=== PATIENT | female | born 1995 | race Asian ===

== ENCOUNTER 2018-11-27 17:05 | Emergency (ER) | payer OTHER ==
--- NOTE | 2018-11-27 19:05 | RADIOLOGY REPORT (SQ) ---
EXAM DESCRIPTION: CHEST 2 VIEWS COMPLETED DATE/TIME: 11/27/2018 6:52 pm REASON FOR STUDY: L lower chest pain COMPARISON: None. EXAM PARAMETERS: NUMBER OF VIEWS: two views TECHNIQUE: Digital Frontal and Lateral radiographic views of the chest acquired. RADIATION DOSE: NA LIMITATIONS: none FINDINGS: LUNGS AND PLEURA: No opacities, masses or pneumothorax. No pleural effusion. MEDIASTINUM AND HILAR STRUCTURES: No masses or contour abnormalities. HEART AND VASCULAR STRUCTURES: Heart normal size. No evidence for failure. BONES: No acute findings. HARDWARE: None in the chest. OTHER: No other significant finding. IMPRESSION: NO ACUTE RADIOGRAPHIC FINDING IN THE CHEST. TECHNICAL DOCUMENTATION: JOB ID: [id number] [id number] 2010 [employer]- All Rights Reserved Reading location - IP/workstation name: [email or web address]
--- NOTE | 2018-11-27 20:18 | ER Document Report ---
ED General - General Chief Complaint: Chest Pain Stated Complaint: CHEST PAIN Time Seen by Provider: 11/27/18 18:23 Notes: 22-year-old female presents emergency department complaining of sharp stabbing left-sided lower chest pain that onset around 3:00 this afternoon. There is no associated trauma, no shortness of breath, no cough, no difficulty breathing, no fevers and no rash. TRAVEL OUTSIDE OF THE [place] IN LAST 30 DAYS: No - Related Data Allergies/Adverse Reactions: No Known Allergies Allergy (Unverified 11/27/18 17:11) Past Medical History - General Information source: Patient - Social History Smoking Status: Never Smoker Chew tobacco use (# tins/day): No Frequency of alcohol use: Rare Drug Abuse: Marijuana Family History: Reviewed & Not Pertinent Patient has suicidal ideation: No Patient has homicidal ideation: No Renal/ Medical History: Denies: Hx Peritoneal Dialysis Review of Systems - Review of Systems Constitutional: No symptoms reported Cardiovascular: See HPI Respiratory: See HPI -: Yes All other systems reviewed and negative Physical Exam - Vital signs Vitals: Temp Pulse Resp BP Pulse Ox 98.1 F 68 20 127/79 H 100 11/27/18 17:13 11/27/18 17:13 11/27/18 17:13 11/27/18 17:13 11/27/18 17:13 Interpretation: Normal - Notes Notes: GENERAL: Alert, interacts well. No acute distress. HEAD: Normocephalic, atraumatic EYES: Pupils equal, round and reactive to light, extraocular movements intact. ENT: Oral mucosa moist, tongue midline. NECK: Full range of motion, supple, trachea midline. LUNGS: Clear to auscultation bilaterally, no wheezes, rales or rhonchi, no re spiratory distress. Nontender to palpation, no rash. HEART: Regular rate and rhythm, no murmurs, gallops, rubs. ABDOMEN: Soft, nontender, nondistended, bowel sounds present in all 4 quadrants. EXTREMITIES: Moves all 4 extremities spontaneously, no edema. No cyanosis. NEUROLOGICAL: Alert and oriented x3, normal speech. PSYCH: Normal mood, normal affect. SKIN: Warm, Dry, normal turgor, no rashes or lesions noted. Course - Re-evaluation Re-evalutation: 11/27/18 20:19 EKG is nonischemic, chest x-ray shows no pneumothorax and no low lying pneumonia. Uncertain why exactly the patient has pleuritic chest pain, there was no preceding viral infection. Discussed with patient taking ibuprofen 800 mg every 8 hours and taking 10 deep breaths full capacity every hour while she is awake. Asked to return for fever, increasing pain, shortness of breath or any new or concerning symptoms. Discharged home. - Vital Signs Vital signs: Temp Pulse Resp BP Pulse Ox 97.6 F 69 16 132/83 H 100 11/27/18 20:34 11/27/18 20:34 11/27/18 20:34 11/27/18 20:34 11/27/18 20:34 - EKG Interpretation by Me Additional EKG results interpreted by me: 11/27/18 19:54 EKG shows sinus rhythm rate is 73, normal inversions, there are retrograde P waves noted in V2 otherwise unremarkable per my interpretation. Discharge - Discharge Clinical Impression: Pleuritic chest pain Condition: Stable Disposition: HOME, SELF-CARE Additional Instructions: You do not have any signs of heart attack or heart problem on your EKG. Your chest x-ray does not reveal any signs of infection and rib or dropped lung. Please take ibuprofen 800 mg every 8 hours and please take 10 deep breaths every hour while you are awake. Please return for fever, increasing pain, shortness of breath or any new or concerning symptoms. Pleurisy Your chest pain has been diagnosed as pleuritis (pleurisy). This is an inflammation of the surface of the lung tissue. It can be caused by a virus or, occasionally, old scar tissue. It is painful but, for the most part, not a serious problem. This pain is usually made worse by deep breathing, coughing, or sudden movements of the upper body or arms. The treatment is relief of symptoms. It includes rest, antiinflammatory medication, and pain medicine. Resolution of the pain is usually rapid once antiinflammatory medication is started. Warning signs of a more serious problem include: a fever, shortness of breath, pain that radiates to your jaw, shoulders or arms, or coughing up bloody sputum. If any of these symptoms occur, call the physician at once. Prescriptions: Prednisone [Deltasone 20 mg Tablet] 40 mg PO DAILY #8 tablet Forms: Return to Work
[2018-11-27 20:36] VITALS: BP 132/83
--- NOTE | 2018-11-28 01:33 | EKG REPORT ---
SEVERITY:- ABNORMAL ECG - SINUS RHYTHM LEFT ATRIAL ABNORMALITY : Confirmed by: Pennie Teran MD 28-Nov-2018 01:31:35
== END 2018-11-27 20:40 | disposition home or self-care (01) ==
LOC: ER 17:05
DX: R07.81 Pleurodynia (principal)
CPT/HCPCS: 71046; 93005; 93010; 99283

== ENCOUNTER 2019-05-21 10:53 | Day surgery (SDC) | payer OTHER ==
[~2019-05-21 10:53] MED LIST: PROPOFOL INJ 200 MG/20 ML VIAL IV ONE
--- NOTE | 2019-05-21 13:51 | Operative Report ---
Operative Report DATE OF SURGERY: 05/21/19 Operative Report: The risks, benefits and alternatives of the procedure including the risk of bleeding, perforation requiring surgery have been explained to the patient in detail and informed consent has been obtained. The patient is taken to the operating room and placed in a left, lateral decubital position. Timeout was called. Propofol medication is administered. Rectal examination is done which did not reveal any masses, tears or fissures. An Olympus videoscope was inserted into the patient's rectum. The scope was then carefully advanced all the way to the cecum. The cecum was identified by the usual anatomical landmarks of the ileocecal valve as well as the appendiceal office. Photodocumentation is obtained. The scope was then sequentially pulled back via the various segments of the colon including the ascending colon, hepatic flexure, transverse colon, splenic flexure, descending colon finding to the rectosigmoid portions of the colon. Retroflexion maneuvers performed. PREOPERATIVE DIAGNOSIS: Abdominal pain rule out Crohn's disease POSTOPERATIVE DIAGNOSIS: Ileitis status post biopsy. Random biopsies taken right side of the colon rule out collagenous colitis OPERATION: Colonoscopy with biopsy SURGEON: NIKITA ARSHAD ANESTHESIA: LMAC TISSUE REMOVED OR ALTERED: As noted above. COMPLICATIONS: None. ESTIMATED BLOOD LOSS: None. INTRAOPERATIVE FINDINGS: As noted above. PROCEDURE: Patient tolerated the procedure well. No immediate post procedure complications are noted. Patient is discharged in good condition. Discharge date 05/21/2019. Discharge diet: Regular. Discharge activity: Regular. 2 to 3-week follow-up to discuss findings. Patient is instructed to call the office or proceed to the emergency room should there be any further problems or questions. Wait on the pathology.
[2019-05-21 14:28] VITALS: BP 105/67
== END 2019-05-21 14:15 | disposition home or self-care (01) ==
LOC: OROUT 10:53
PROVIDERS: ATTEND Internal Medicine Gastroenterology
DX: J45.909 Unspecified asthma, uncomplicated (principal); K52.9 Noninfective gastroenteritis and colitis, unspecified; Z79.51 Long term (current) use of inhaled steroids
CPT/HCPCS: 81025; 88305 ×2; J2704; 45380

== ENCOUNTER 2020-02-16 10:18 | Outpatient (CLI) | payer MEDICAID ==
[2020-02-16] MEDS: RINGERS SOLUTION,LACTATED 1,000 ML IV PRN ×2 (10:58→13:01)
[2020-02-16 11:07] LABS: APPEARANCE,URINE CLEAR; BILIRUBIN,URINE NEGATIVE (NEGATIVE); COLOR,URINE YELLOW; GLUCOSE, URINE NEGATIVE (NEGATIVE); KETONES,URINE NEGATIVE (NEGATIVE); LEUKOCYTE ESTERASE,URINE NEGATIVE (NEGATIVE); NITRITE,URINE NEGATIVE (NEGATIVE); PROTEIN,URINE NEGATIVE (NEGATIVE); URINE SPECIFIC GRAVITY 1.011; UROBILINOGEN,URINE NEGATIVE mg/dL (<2.0)
--- NOTE | 2020-02-16 11:22 | Non Stress Test Report ---
Non Stress Test Datetime Report Generated by CPN: 02/16/2020 11:22 DEMOGRAPHIC EGA NST: 40.1 INDICATION Indication for Study (NST) Other: ctx MONITORING Monitor Explained: Monitor Explained; Patient Verbalized Understanding Time on Monitor: 02/16/2020 11:00 NST INTERVENTIONS NST Interventions: PO Hydration; IV Fluids; Reposition Patient Physician Notified NST: Dr. Colorado BABY A: [id number] BABY A Movement : Present Contraction Frequency : 4.5-5 FHR Baseline : 145 Accelerations : 15X15 Decelerations : None Variability : Moderate 6-25bpm NST Review: Meets Criteria for Reactive NST NST Review and Verified By : COLT Duval Results: Reactive NST REPORT Report Trigger: Send Report
[2020-02-16 11:24] LABS: URINE AMPHETAMINES SCREEN NEGATIVE; URINE BARBITURATES SCREEN NEGATIVE; URINE BENZODIAZEPINES SCREEN NEGATIVE; URINE COCAINE SCREEN NEGATIVE; URINE MARIJUANA (THC) SCREEN NEGATIVE; URINE METHADONE SCREEN NEGATIVE; URINE PHENCYCLIDINE SCREEN NEGATIVE
[2020-02-16] MEDS ORDERED: RINGERS SOLUTION,LACTATED 2,000 ML IV PRN (12:54)
--- NOTE | 2020-02-16 13:32 | RADIOLOGY REPORT (SQ) ---
EXAM DESCRIPTION: U/S PROFILE W/O STRESS IMAGES COMPLETED DATE/TIME: 02/16/2020 1:23 pm REASON FOR STUDY: 40.1 wellbeing COMPARISON: None. TECHNIQUE: Limited lynn-scale realtime and static images of the fetus to measure specified parameter s. LIMITATIONS: None. FINDINGS: HEART RATE: 118 beats per minute. BREATHING MOVEMENT: 2 points. MOVEMENT: 2 points. POSTURE AND TONE: 2 points. QUALITATIVE JONES: 2 points. OTHER: No other significant finding. IMPRESSION: BIOPHYSICAL PROFILE: 05/02. Trimester of : Third - 28 weeks to delivery COMMENT: BREATHING MOVEMENTS: 2 POINTS: PRESENT 0 POINTS: ABSENT MOTION: 2 POINTS: PRESENT 0 POINTS: ABSENT TONE: 2 POINTS: PRESENT 0 POINTS: ABSENT AMNIOTIC FLUID VOLUME: 2 POINTS: LARGEST POCKET GREATER THAN 2 CM DEPTH. 0 POINTS: NO POCKET OF 2 CM. TECHNICAL DOCUMENTATION: JOB ID: [id number] 2010 [employer]- All Rights Reserved Reading location - IP/workstation name: [email or web address]
== END 2020-02-16 14:11 | disposition home or self-care (01) ==
LOC: LC 10:18
PROVIDERS: ATTEND Obstetrics & Gynecology Gynecology
DX: Z34.93 Encounter for supervision of normal pregnancy, unspecified, third trimester (principal)
CPT/HCPCS: 59025; 76819; 80307; 81005

== ENCOUNTER 2020-02-17 00:25 | Outpatient (CLI) | payer MEDICAID ==
[2020-02-17 01:11] LABS: APPEARANCE,URINE CLEAR; BILIRUBIN,URINE NEGATIVE (NEGATIVE); COLOR,URINE YELLOW; GLUCOSE, URINE NEGATIVE (NEGATIVE); KETONES,URINE NEGATIVE (NEGATIVE); LEUKOCYTE ESTERASE,URINE NEGATIVE (NEGATIVE); NITRITE,URINE NEGATIVE (NEGATIVE); PROTEIN,URINE NEGATIVE (NEGATIVE); URINE SPECIFIC GRAVITY 1.015; UROBILINOGEN,URINE NEGATIVE mg/dL (<2.0)
[2020-02-17] MEDS ORDERED: HYDROXYZINE PAMOATE 50 MG CAPSULE ONE (01:35)
[2020-02-17 01:36] LABS: URINE AMPHETAMINES SCREEN NEGATIVE; URINE BARBITURATES SCREEN NEGATIVE; URINE BENZODIAZEPINES SCREEN NEGATIVE; URINE COCAINE SCREEN NEGATIVE; URINE MARIJUANA (THC) SCREEN NEGATIVE; URINE METHADONE SCREEN NEGATIVE; URINE PHENCYCLIDINE SCREEN NEGATIVE
[2020-02-17] MEDS ORDERED: HYDROXYZINE PAMOATE 50 MG CAPSULE PO ONE (01:38)
== END 2020-02-17 01:51 | disposition home or self-care (01) ==
LOC: LC 00:25
PROVIDERS: ATTEND Obstetrics & Gynecology Gynecology
DX: Z34.93 Encounter for supervision of normal pregnancy, unspecified, third trimester (principal)
CPT/HCPCS: 59025; 81005; 80307; J3490

== ENCOUNTER 2020-02-18 09:13 | Inpatient (IN) | payer MEDICAID ==
--- NOTE | 2020-02-18 09:29 | Non Stress Test Report ---
Non Stress Test Datetime Report Generated by CPN: 02/18/2020 09:29 DEMOGRAPHIC EGA NST: 40.2 INDICATION Indication for Study (NST) Other: lc URINE RESULTS Urine Protein, NST: Negative Urine Ketones - NST: Negative Urine Glucose - NST: Negative Urine Blood - NST: Positive MONITORING Monitor Explained: Monitor Explained; Test Explained; Patient Verbalized Understanding Time on Monitor: 02/17/2020 01:10 Time off Monitor: 02/17/2020 01:30 NST Duration: 20 NST INTERVENTIONS NST Interventions: PO Hydration; Reposition Patient; Other NST Interventions Other: Popsicle Physician Notified NST: Dr Colorado BABY A: [id number] BABY A Movement : Present Contraction Frequency : irrit FHR Baseline : 135 Accelerations : 15X15 Decelerations : None Variability : Moderate 6-25bpm NST Review: Meets Criteria for Reactive NST NST Review and Verified By : Marquita eMna RN NST Results: Reactive NST REPORT Report Trigger: Send Report
[2020-02-18] MEDS ORDERED: RINGERS SOLUTION,LACTATED 1,000 ML IV ONE (09:30)
[2020-02-18] MEDS ORDERED: RINGERS SOLUTION,LACTATED 1,000 ML IV PRN (09:33)
[2020-02-18 10:02] LABS: APPEARANCE,URINE SLIGHTLY-CLOUDY; BILIRUBIN,URINE NEGATIVE (NEGATIVE); COLOR,URINE YELLOW; GLUCOSE, URINE NEGATIVE (NEGATIVE); KETONES,URINE TRACE mg/dL (NEGATIVE); LEUKOCYTE ESTERASE,URINE MODERATE (NEGATIVE); NITRITE,URINE NEGATIVE (NEGATIVE); PROTEIN,URINE NEGATIVE (NEGATIVE); UROBILINOGEN,URINE NEGATIVE mg/dL (<2.0)
[2020-02-18 10:15] LABS: URINE AMPHETAMINES SCREEN NEGATIVE; URINE BARBITURATES SCREEN NEGATIVE; URINE BENZODIAZEPINES SCREEN NEGATIVE; URINE COCAINE SCREEN NEGATIVE; URINE MARIJUANA (THC) SCREEN NEGATIVE; URINE METHADONE SCREEN NEGATIVE; URINE PHENCYCLIDINE SCREEN NEGATIVE
[2020-02-18 10:21] LABS: ABSOLUTE LYMPHOCYTES (AUTO) 0.7 10^3/uL (0.5-4.7); ABSOLUTE MONOCYTES (AUTO) 0.5 10^3/uL (0.1-1.4); BASOPHILS % (AUTO) 0.3 % (0-2); EOSINOPHILS % (AUTO) 0.4 % (0-6); HEMOGLOBIN 12.4 g/dL (12.0-15.5); LYMPHOCYTES % (AUTO) 7.9 % (13-45); MEAN CORPUSCULAR HEMOGLOBIN 29.1 pg (27.0-33.4); MEAN CORPUSCULAR HGB CONC 34.4 g/dL (32.0-36.0); MEAN CORPUSCULAR VOLUME 85 fl (80-97); MONOCYTES % (AUTO) 5.4 % (3-13); PLATELET COUNT 147 10^3/uL (150-450); RED BLOOD COUNT 4.25 10^6/uL (3.72-5.28); RED CELL DISTRIBUTION WIDTH 17.2 % (11.5-14.0); TOTAL CELLS COUNTED % (AUTO) 100 %; WHITE BLOOD COUNT 9.3 10^3/uL (4.0-10.5)
[2020-02-18] MEDS ORDERED: OXYTOCIN 10 UNIT/ML VIAL ONE (10:35)
[2020-02-18] MEDS ORDERED: MISOPROSTOL 0.2 MG TABLET ONE (10:35)
[2020-02-18] MEDS ORDERED: BUPIVACAINE HCL 0.25 % INJ/PF (2.5 MG/1 ML) 30 ML VIAL ONE (10:36)
[2020-02-18] MEDS ORDERED: EPHEDRINE SULFATE INJ 50 MG/1 ML AMPULE ONE (10:36)
[2020-02-18] MEDS ORDERED: FENTANYL/BUPIVACAINE/NS/PF 300 MCG/150 ML RTUINJ EPI ONE (10:36)
[2020-02-18] MEDS ORDERED: OXYTOCIN/0.9 % SODIUM CHLORIDE 30 UNIT/500 ML RTUINJ ONE (10:36)
[2020-02-18] MEDS ORDERED: LIDOCAINE 1% INJ-PF (10 MG/ML) 30 ML SDV ONE (10:36)
[2020-02-18] MEDS ORDERED: OXYTOCIN/0.9 % SODIUM CHLORIDE 30 UNIT/500 ML RTUINJ IV PRN (12:29)
[2020-02-19] MEDS ORDERED: LIDOCAINE 2% INJ-PF (20 MG/ML) 10 ML AMPUL ONE (02:35)
[2020-02-19] MEDS ORDERED: CITRIC ACID/SODIUM CITRATE ORAL SOLN 15 ML UDCUP ONE (02:35)
[2020-02-19] MEDS ORDERED: CEFAZOLIN 1 GM/D5W RTU 2 GM/100 ML RTUPB IV ONE (02:35)
[2020-02-19] MEDS ORDERED: SODIUM BICARBONATE 4.2% INJ (2.5 MEQ/5 ML) VIAL ONE (02:40)
[2020-02-19] MEDS ORDERED: METHYLERGONOVINE MALEATE INJ/PF 0.2 MG/1 ML AMPULE ONE (02:44)
[2020-02-19] MEDS ORDERED: MIDAZOLAM 2 MG/2 ML INJ ONE (02:50)
[2020-02-19] MEDS ORDERED: ONDANSETRON HCL INJ/PF 4 MG/2 ML SDV ONE (02:50)
[2020-02-19] MEDS ORDERED: OXYTOCIN 10 UNIT/ML VIAL ONE (02:50)
[2020-02-19] MEDS ORDERED: PHENYLEPHRINE HCL INJ/PF 10 MG/1 ML SDV ONE (02:51)
[2020-02-19] MEDS ORDERED: SIMETHICONE 80 MG TAB.CHEW PO PRN (03:47)
[2020-02-19] MEDS ORDERED: OXYTOCIN/0.9 % SODIUM CHLORIDE 30 UNIT/500 ML RTUINJ IV PRN (03:47)
[2020-02-19] MEDS ORDERED: ACETAMINOPHEN 1,000 MG/100 ML RTUPB IV PRN (03:47)
[2020-02-19] MEDS ORDERED: OXYCODONE-ACETAMINOPHEN 5-325 MG TABLET PO PRN ×2 (03:47)
[2020-02-19] MEDS ORDERED: ACETAMINOPHEN 325 MG TABLET PO PRN (03:47)
[2020-02-19] MEDS ORDERED: RINGERS SOLUTION,LACTATED 1,000 ML IV PRN (03:47)
[2020-02-19] MEDS ORDERED: MEASLES,MUMPS&RUBELLA VACC/PF 0.5 ML VIAL SUBCUT PRN (03:47)
[2020-02-19] MEDS ORDERED: PROMETHAZINE HCL INJ 25 MG/1 ML VIAL IV PRN (03:47)
[2020-02-19] MEDS ORDERED: DIPH/PERTUSS(ACELL)/TETANUS VAC/PF 0.5 ML SYR (>=10YO) IM PRN (03:47)
--- NOTE | 2020-02-19 03:51 | Operative Report ---
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 A transverse skin incision was made with a scalpel and carried through to the underlying layer of fascia with the same scalpel. The fascia was excised in the midline and extended laterally with Jonny. The fascia was then dissected from the rectus muscle sharply with Jonny and the rectus muscle was divided and the peritoneal cavity was entered sharply with the same Metzenbaum. With good visualization of the bladder and the uterus the bladder blade was inserted. The hysterotomy was nicked with a scalpel and extended laterally with surgeon finger fraction. The was then delivered atraumatically. The nose and mouth were suctioned with a suction bulb, the cord was clamped and cut and handed off to awaiting pediatricians. Cord blood was collected. The placenta was removed manually. The uterus was exteriorized and cleared of clots and debris. The hysterotomy was closed with 0 Monocryl in a running, locked fashion. A second layer of the same suture was used to imbricate to ensure hemostasis. The uterus was returned to the abdomen and peritoneal cavity was cleared of clots and debris. The rectus muscle and peritoneum were repaired with mattress stitch of 2-0 Chromic. The fascia was closed with 0-Vicryl. The subcutaneous layer was closed with plain catgut and the skin was closed with 4-0 Vicryl. The patient tolerated the procedure well. Sponge, lap, and needle counts correct x2 and the patient was taken to recovery in stable condition.
[2020-02-19] MEDS ORDERED: MORPHINE SULFATE 10 MG/ML INJ ONE (03:56)
[2020-02-19] MEDS ORDERED: OXYTOCIN/0.9 % SODIUM CHLORIDE 30 UNIT/500 ML RTUINJ ONE (03:57)
[2020-02-19] MEDS ORDERED: FENTANYL CITRATE INJ/PF 100 MCG/2 ML AMPUL ONE (04:33)
--- NOTE | 2020-02-19 05:08 | Delivery Summary ---
Del Sum A-C Datetime Report Generated by CPN: 02/19/2020 05:08 DELIVERY PERSONNEL DELIVERY PERSONNEL: [id number] Delivery Doctor:: Jana Douglas MD Anesthesiologist:: Camarena SHOP MECHANIC:: Clint Luis, SHOP MECHANIC Outside Sales Representative Insurance:: Wesley Sanabria, RN Sql Ssrs Developer/PONY ROUGHER: Virgen FerrisST Sql Ssrs Developer/PONY ROUGHER: ST Chantelle Additional Personnel: : Geovanna Tate RN MATERNAL INFORMATION Delivery Anesthesia: Epidural Medications After Delivery: Pitocin Bolus-Please Comment; Pitocin 30 Units in 500ml NS/D5W Meds After Delivery Comment: 30 units in 500mLs NS open bolus. 2nd bag at 125 mL/hr Maternal Complications: None LABOR SUMMARY EDC: 02/15/2020 00:00 No. Babies in Womb: 1 Attempted: No Labor Anesthesia: Epidural LABOR INFORMATION Reason for Induction: Not Applicable Onset of Labor: 02/18/2020 11:37 Complete Dilatation: 02/18/2020 23:11 Oxytocin: Augmentation Group B Beta Strep: Negative Antibiotics # of Doses: 0 Steroids Given: None Reason Steroids Not Administered: Not Applicable MEMBRANES Membranes Rupture Method: Artificial Rupture of Membranes: 02/18/2020 11:37 Length of Rupture (hr): 15.62 Amniotic Fluid Color: Moderate Meconium Amniotic Fluid Amount: Small Amniotic Fluid Odor: None STAGES OF LABOR Stage 1 hr: 11 Stage 1 min: 34 Stage 2 hr: 4 Stage 2 min: 3 Stage 3 hr: 0 Stage 3 min: 2 Total Time in Labor hr: 15 Total Time in Labor min: 39 VAGINAL DELIVERY Episiotomy: None Laceration #1: None Laceration Extension #1: N/A Sponge Count Correct: N/A Sharps Count Correct: N/A CSECTION DELIVERY Primary Indication: Failure of Descent Secondary Indication: N/A CSection Urgency: Non-Scheduled CSection Incidence: Primary Labor: Labor Elective: Nonelective CSection Incision: Lower Uterine Transverse BABY A INFORMATION Infant Delivery Date/Time: 02/19/2020 03:14 Method of Delivery: Nurse Controlled Delivery: No Born in Route : No : N/A Forceps: N/A Vacuum Extraction: N/A Shoulder Dystocia : No PRESENTATION/POSITION BABY A Presentation: Cephalic Cephalic Presentation: Vertex Vertex Position: Right Occipital Anterior Breech Presentation: N/A PLACENTA INFORMATION BABY A Placenta Delivery Time : 02/19/2020 03:16 Placenta Method of Delivery: Manual Removal Placenta Status: Delivered SCORES BABY A Heart Rate 1 min: >100 bpm Resp Effort 1 min: Good Cry Reflex Irritability 1 min: Cough or Sneeze or Pulls Away Muscle Tone 1 min: Active Motion Color 1 min: Body Idana, Extremities Blue SCORE 1 MIN: 9 Heart Rate 5 min: >100 bpm Resp Effort 5 min: Good Cry Reflex Irritability 5 min: Cough or Sneeze or Pulls Away Muscle Tone 5 min: Active Motion Color 5 min: Body Idana, Extremities Blue SCORE 5 MIN: 9 INFANT INFORMATION BABY A Gestational Age at Delivery: 40.4 Gestational Status: Full Term- 39- 40.6 Weeks Infant Outcome : Liveborn Infant Condition : Stable Sex: Female IDENTIFICATION BABY A Infant Verification Date/Time: 02/19/2020 03:22 ID Band Number: [id number] Mother's Name Verified: Yes Infant RN Verifying : J Field RN/ D Bellavance RN WEIGHT/LENGTH BABY A Infant Birthweight (gm): 4410 Weight (lb): 9 Weight (oz): 12 Infant Length (in): 21.00 Length (cm): 53.34 CORD INFORMATION BABY A No. Cord Vessels: 3 Nuchal Cord : N/A Cord Blood Taken: Yes-For Storage (Mom's Blood type +) Suction: Mouth; Nose BABY B INFORMATION : N/A SIGNATURES : I was personally available for consultation and serving as supervising physician for the MLP.
[2020-02-19] MEDS ORDERED: MISOPROSTOL 0.2 MG TABLET ONE (05:37)
[2020-02-19] MEDS ORDERED: KETOROLAC TROMETHAMINE INJ/PF 30 MG/1 ML SDV ONE (05:45)
[2020-02-19] MEDS: KETOROLAC TROMETHAMINE INJ/PF 30 MG/1 ML SDV IV SCH ×3 (05:46→21:29)
[2020-02-19] MEDS: MORPHINE SULFATE 10 MG/ML INJ IV PRN ×2 (08:50→13:42)
[2020-02-19] MEDS: PRENATAL VITAMIN W DHA CAPSULE PO SCH (09:20)
[2020-02-19] MEDS: DOCUSATE SODIUM 100 MG CAPSULE PO SCH ×2 (09:20→17:22)
--- NOTE | 2020-02-19 10:50 | PDOC PROGRESS REPORT ---
Subjective-OB Progress Note for:: 02/19/20 Subjective: 24yo G1 now P1 s/p primary delivery day. Munoz catheter still in place, has not been out of bed yet; reports pain well controlled with medication at this time. No concerns today Physical Exam (OB) Vital Signs: Temp Pulse Resp BP Pulse Ox 98.7 F 102 H 17 113/75 99 02/19/20 09:35 02/19/20 09:35 02/19/20 09:35 02/19/20 09:35 02/19/20 09:35 Intake & Output 02/18/20 02/19/20 02/20/20 06:59 06:59 06:59 Weight 83.1 kg - General General Appearance: Appears well In distress: None - Dressing Removed: No Closure Type: opp-site - Lochia Lochia Amount: Small 10-25 ml Lochia Color: Rubra/Red - Abdomen Description: Tender, Soft Fundal Description: Firm, Midline Fundal Height: u/u - u/2 - Respiratory Respiratory Status: No respiratory distress - Extremities Upper extremity: Normal inspection Lower extremities: Normal inspection - Neurological Cognition: Normal Orientation: AAOx4 - Psychological Associated symptoms: Normal affect, Normal mood Objective-Diagnostic Laboratory: 02/18/20 10:06 02/18/20 02/18/20 02/18/20 09:37 10:06 10:06 WBC 9.3 RBC 4.25 Hgb 12.4 Hct 36.0 MCV 85 MCH 29.1 MCHC 34.4 RDW 17.2 H Plt Count 147 L Seg Neutrophils % 86.0 H Urine Color YELLOW Urine Appearance SLIGHTLY-CLOUDY Urine pH 6.0 Ur Specific [place] 1.010 Urine Protein NEGATIVE Urine Glucose (UA) NEGATIVE Urine Ketones TRACE H Urine Blood LARGE H Urine Nitrite NEGATIVE Ur Leukocyte Esterase MODERATE H Urine WBC (Auto) 20 Urine RBC (Auto) 32 Blood Type AB POSITIVE Antibody Screen NEGATIVE Assessment and Plan(PN) - Assessment and Plan (1) S/P primary low transverse Is this a current diagnosis for this admission?: Yes Plan: routine pp care (2) Active labor at term Is this a current diagnosis for this admission?: Yes Plan: delivered - Time Spent with Patient Time with patient: Less than 15 minutes Medications reviewed and adjusted accordingly: Yes - Disposition Anticipated Discharge: Home Within: within 48 hours
[2020-02-19 11:25] LABS: HEMATOCRIT 30.4 % (36.0-47.0); HEMOGLOBIN 10.4 g/dL (12.0-15.5); MEAN CORPUSCULAR HEMOGLOBIN 29.1 pg (27.0-33.4); MEAN CORPUSCULAR HGB CONC 34.2 g/dL (32.0-36.0); MEAN CORPUSCULAR VOLUME 85 fl (80-97); PLATELET COUNT 144 10^3/uL (150-450); RED BLOOD COUNT 3.57 10^6/uL (3.72-5.28); RED CELL DISTRIBUTION WIDTH 17.3 % (11.5-14.0); WHITE BLOOD COUNT 14.6 10^3/uL (4.0-10.5)
[2020-02-19] MEDS ORDERED: IRON SUCROSE COMPLEX INJ/PF 100 MG/5 ML SDV IV ONE (12:00)
--- NOTE | 2020-02-19 12:36 | Admission Physical ---
Datetime Report Generated by CPN: 02/19/2020 12:36 CURRENT ADMISSION Chief Complaint: Uterine Contractions; Sent from OB Office for Evaluation and Treatment - Please Specify Chief Complaint Other: seen at [facility] this am Indication for Induction: Not Applicable Admit Impression : Active Labor Admit Plan: Admit to Unit; Initiate Labor Protocol Admit Plan- Other: GBS neg G1 ALLERGIES Medication Allergies: No Medication Allergies: No Known Allergies (02/18/2020) Latex: No Latex Allergies Food Allergies: n/a Environmental Allergies: n/a OBSTETRICAL HISTORY EDC: 02/15/2020 00:00 : 1 Para: 0 Term: 0 : 0 SAB: 0 IAB: 0 Ectopic: 0 Livin Cesareans: 0 VBACs: 0 Multiple Births: 0 Gestational Diabetes: No Rh Sensitization: No Incompetent Cervix: No PAUL: No Infertility: No ART Treatment: No Uterine Anomaly: No IUGR: No Hx Previous C/S: No Macrosomia: No Hx Loss/Stillborn: No PIH: No Hx : No Placenta Previa/Abruption: No Depression/PP Depression: No PTL/PROM: No Post Hemorrhage: No Current Procedures: Ultrasound Obstetrical History Comments: G1- current SEE RECORDS Alcohol: No Marijuana : No Cocaine: No Other Illicit Drugs: No Cigarettes: Never Smoker. [id number] MEDICAL HISTORY Diabetes: No Blood Transfusion: No Pulmonary Disease (Asthma, TB): Yes Breast Disease: No Hypertension: No Client Renewal Specialist Surgery: No Heart Disease: No Hosp/Surgery: Yes Autoimmune Disorder: No Anesthetic Complications: No Kidney Disease: No Abnormal Pap Smear: No Neuro/Epilepsy: No Psychiatric Disorders: No Other Medical Diseases: No Hepatitis/Liver Disease: No Significant Family History: No Varicosities/Phlebitis: No Trauma/Violence : No Thyroid Dysfunction: No Medical History Comments: depression/anxiety- was taking medication before , asthma- takes flovent BID, nasal surgery INFECTIOUS HISTORY Gonorrhea: No Genital Herpes: Yes Chlamydia: No Tuberculosis: No Syphilis: No Hepatitis: No HIV/AIDS Exposure: No Rash or Viral Illness: No HPV: No Infectious History Comments: Denies outrbreak since initial diagnosis in 2012. Valtrex daily started at 36 weeks. No lesions noted on exam today. (Annotations: Data stored by [facility] on behalf of user) PHYSICAL EXAM General: Normal HEENT: Deferred Neurologic: Normal Thyroid: Deferred Heart: Normal Lungs: Normal Breast: Deferred Back: Deferred Abdomen: Normal Genitourinary Exam: Normal Extremities: Normal DTRs: Deferred Pelvic Type: Adequate Physical Exam Comments: per Dr. 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
[2020-02-20] MEDS: MORPHINE SULFATE 10 MG/ML INJ IV PRN (00:46)
[2020-02-20] MEDS: IBUPROFEN 800 MG TABLET PO SCH ×4 (05:21→23:04)
[2020-02-20] MEDS: PRENATAL VITAMIN W DHA CAPSULE PO SCH (09:48)
[2020-02-20] MEDS: DOCUSATE SODIUM 100 MG CAPSULE PO SCH ×2 (09:48→17:37)
[2020-02-20 10:55] LABS: HEMATOCRIT 32.3 % (36.0-47.0); HEMOGLOBIN 10.9 g/dL (12.0-15.5); MEAN CORPUSCULAR HGB CONC 33.8 g/dL (32.0-36.0); MEAN CORPUSCULAR VOLUME 86 fl (80-97); PLATELET COUNT 154 10^3/uL (150-450); RED BLOOD COUNT 3.76 10^6/uL (3.72-5.28); WHITE BLOOD COUNT 11.7 10^3/uL (4.0-10.5)
--- NOTE | 2020-02-20 11:27 | PDOC PROGRESS REPORT ---
Subjective-OB Progress Note for:: 02/20/20 Subjective: 24yo s/p repeat ppd 1. Pt. is voiding and ambulating without difficulty,passing gas. Reports episode that was like a panic attack last night but doing much better this morning. Reports pain well controlled with medication, no concerns today Physical Exam (OB) Vital Signs: Temp Pulse Resp BP Pulse Ox 97.9 F 94 20 104/65 99 02/20/20 08:00 02/20/20 08:00 02/20/20 08:00 02/20/20 08:00 02/20/20 08:00 Intake & Output 02/19/20 02/20/20 02/21/20 06:59 06:59 06:59 Intake Total 1120 Output Total 1340 Balance -220 Weight 83.1 kg - General General Appearance: Appears well In distress: None - PIH/Pre-Eclampsia Headache: Absent Epigastric Pain: No Visual Changes: No - Dressing Removed: No Incision: Dressing Closure Type: opsite - Lochia Lochia Amount: Small 10-25 ml Lochia Color: Rubra/Red - Abdomen Description: Soft Hernia Present: No Fundal Description: Firm, Midline Fundal Height: u/u - u/2 - Respiratory Respiratory Status: No respiratory distress - Extremities Upper extremity: Normal inspection Lower extremities: Normal inspection - Neurological Cognition: Normal Orientation: AAOx4 - Psychological Associated symptoms: Normal affect, Normal mood Objective-Diagnostic Laboratory: 02/20/20 10:40 02/19/20 02/20/20 11:00 10:40 WBC 14.6 H 11.7 H RBC 3.57 L 3.76 Hgb 10.4 L 10.9 L Hct 30.4 L 32.3 L MCV 85 86 MCH 29.1 29.0 MCHC 34.2 33.8 RDW 17.3 H 18.0 H Plt Count 144 L 154 Assessment and Plan(PN) - Assessment and Plan (1) S/P primary low transverse Is this a current diagnosis for this admission?: Yes Plan: routine pp care (2) Active labor at term Is this a current diagnosis for this admission?: Yes Plan: delivered (3) Acute blood loss anemia Is this a current diagnosis for this admission?: Yes Plan: increase dietary iron and FeSO4 BID - Time Spent with Patient Time with patient: Less than 15 minutes Medications reviewed and adjusted accordingly: Yes - Disposition Anticipated Discharge: Home Within: within 24 hours
[2020-02-20] MEDS ORDERED: DIPH/PERTUSS(ACELL)/TETANUS VAC/PF 0.5 ML SYR (>=10YO) IM PRN (15:30)
[2020-02-20] MEDS ORDERED: PROMETHAZINE HCL INJ 25 MG/1 ML VIAL IV PRN (15:30)
[2020-02-20] MEDS ORDERED: MEASLES,MUMPS&RUBELLA VACC/PF 0.5 ML VIAL SUBCUT PRN (15:30)
[2020-02-21] MEDS: IBUPROFEN 800 MG TABLET PO SCH ×3 (05:41→18:16)
[2020-02-21] MEDS: PRENATAL VITAMIN W DHA CAPSULE PO SCH (09:57)
[2020-02-21] MEDS: DOCUSATE SODIUM 100 MG CAPSULE PO SCH ×2 (09:57→18:16)
--- NOTE | 2020-02-21 11:51 | PDOC DISCHARGE SUMMARY ---
Impression - Admit/DC Date/PCP Admission Date/Primary Care Provider: 02/18/20 09:19 HUBERT BRIGGS MD Discharge Date: 02/21/20 - Discharge Diagnosis (1) Active labor at term Is this a current diagnosis for this admission?: Yes (2) S/P primary low transverse Is this a current diagnosis for this admission?: Yes (3) Failure of descent in labor, delivered, current hospitalization Is this a current diagnosis for this admission?: Yes - Additional Information Discharge Diet: Regular Discharge Activity: Balance Activity w/Rest, Pelvic Rest Referrals: HUBERT BRIGGS MD [Primary Care Provider] - Prescriptions: Fluticasone Propionate [Flovent Hfa 110 Mcg Inhalation Aerosol 12 gm] 1 puff IH Q12 30 Days #1 inhaler Ibuprofen [Motrin 800 mg Tablet] 800 mg PO Q8HP PRN #90 tablet PRN Reason: Oxycodone HCl/Acetaminophen [Percocet 5-325 mg Tablet] 1 tab PO Q4HP PRN #30 tablet PRN Reason: Home Medications: Vit No.130/Iron/Folic [ Tablet] 1 each PO DAILY 02/16/20 Fluticasone Propionate [Flovent Hfa 110 Mcg Inhalation Aerosol 12 gm] 1 puff IH Q12 30 Days #1 inhaler 02/21/20 Ibuprofen [Motrin 800 mg Tablet] 800 mg PO Q8HP PRN #90 tablet 02/21/20 Oxycodone HCl/Acetaminophen [Percocet 5-325 mg Tablet] 1 tab PO Q4HP PRN #30 tablet 02/21/20 Results Laboratory Results: WBC 11.7 10^3/uL (4.0-10.5) H 02/20/20 10:40 RBC 3.76 10^6/uL (3.72-5.28) 02/20/20 10:40 Hgb 10.9 g/dL (12.0-15.5) L 02/20/20 10:40 Hct 32.3 % (36.0-47.0) L 02/20/20 10:40 MCV 86 fl (80-97) 02/20/20 10:40 MCH 29.0 pg (27.0-33.4) 02/20/20 10:40 MCHC 33.8 g/dL (32.0-36.0) 02/20/20 10:40 RDW 18.0 % (11.5-14.0) H 02/20/20 10:40 Plt Count 154 10^3/uL (150-450) 02/20/20 10:40 Lymph % (Auto) 7.9 % (13-45) L 02/18/20 10:06 [place] % (Auto) 5.4 % (3-13) 02/18/20 10:06 Eos % (Auto) 0.4 % (0-6) 02/18/20 10:06 Baso % (Auto) 0.3 % (0-2) 02/18/20 10:06 Absolute Neuts (auto) 8.0 10^3/uL (1.7-8.2) 02/18/20 10:06 Absolute Lymphs (auto) 0.7 10^3/uL (0.5-4.7) 02/18/20 10:06 Absolute Monos (auto) 0.5 10^3/uL (0.1-1.4) 02/18/20 10:06 Absolute Eos (auto) 0.0 10^3/uL (0.0-0.6) 02/18/20 10:06 Absolute Basos (auto) 0.0 10^3/uL (0.0-0.2) 02/18/20 10:06 Seg Neutrophils % 86.0 % (42-78) H 02/18/20 10:06 POC Glucose 95 mg/dL (70-110) 02/20/20 01:12 Urine Color YELLOW 02/18/20 09:37 Urine Appearance SLIGHTLY-CLOUDY 02/18/20 09:37 Urine pH 6.0 (5.0-9.0) 02/18/20 09:37 Ur Specific [place] 1.010 02/18/20 09:37 Urine Protein NEGATIVE mg/dL (NEGATIVE) 02/18/20 09:37 Urine Glucose (UA) NEGATIVE mg/dL (NEGATIVE) 02/18/20 09:37 Urine Ketones TRACE mg/dL (NEGATIVE) H 02/18/20 09:37 Urine Blood LARGE (NEGATIVE) H 02/18/20 09:37 Urine Nitrite NEGATIVE (NEGATIVE) 02/18/20 09:37 Urine Bilirubin NEGATIVE (NEGATIVE) 02/18/20 09:37 Urine Urobilinogen NEGATIVE mg/dL (<2.0) 02/18/20 09:37 Ur Leukocyte Esterase MODERATE (NEGATIVE) H 02/18/20 09:37 Urine WBC (Auto) 20 /HPF 02/18/20 09:37 Urine RBC (Auto) 32 /HPF 02/18/20 09:37 Urine Bacteria (Auto) TRACE /HPF 02/18/20 09:37 Squamous Epi Cells Auto 7 /HPF 02/18/20 09:37 Urine Mucus (Auto) OCC /LPF 02/18/20 09:37 Urine Ascorbic Acid NEGATIVE (NEGATIVE) 02/18/20 09:37 Urine Opiates Screen NEGATIVE 02/18/20 09:37 Urine Methadone Screen NEGATIVE 02/18/20 09:37 Ur Barbiturates Screen NEGATIVE 02/18/20 09:37 Ur Phencyclidine Scrn NEGATIVE 02/18/20 09:37 Ur Amphetamines Screen NEGATIVE 02/18/20 09:37 U Benzodiazepines Scrn NEGATIVE 02/18/20 09:37 Urine Cocaine Screen NEGATIVE 02/18/20 09:37 U Marijuana (THC) Screen NEGATIVE 02/18/20 09:37 RPR NONREACTIVE (NONREACTIVE) 02/18/20 10:06 Blood Type AB POSITIVE 02/18/20 10:06 Antibody Screen NEGATIVE 02/18/20 10:06 Plan Plan of Treatment: follow up in one week at [facility] for incision check
[2020-02-21 12:08] VITALS: BP 113/75
== END 2020-02-21 19:22 | disposition home or self-care (01) | DRG 787 ==
LOC: LC 09:13 → LR 09:19 → 2S 02-19 05:55
PROVIDERS: ADMIT Obstetrics & Gynecology; ATTEND Obstetrics & Gynecology
PROC: 10D00Z1 Extraction of Products of Conception, Low, Open Approach (ICD-10-PCS; principal; 2020-02-19)
PROC: 3E0234Z Introduction of Serum, Toxoid and Vaccine into Muscle, Percutaneous Approach (ICD-10-PCS; 2020-02-21)
DX: O77.0 Labor and delivery complicated by meconium in amniotic fluid (principal); O98.32 Other infections with a predominantly sexual mode of transmission complicating childbirth; O62.1 Secondary uterine inertia; A60.00 Herpesviral infection of urogenital system, unspecified; O99.344 Other mental disorders complicating childbirth; O33.9 Maternal care for disproportion, unspecified; F41.9 Anxiety disorder, unspecified; F32.9 Major depressive disorder, single episode, unspecified; O99.52 Diseases of the respiratory system complicating childbirth; J45.909 Unspecified asthma, uncomplicated; Z37.0 Single live birth; Z79.899 Other long term (current) drug therapy; Z3A.40 40 weeks gestation of pregnancy; Z23 Encounter for immunization
CPT/HCPCS: 1967; 1968; 36415; 80307; 81001; 82962; 85025; 85027; 86592; 86850; 86900; 86901; 90715; 94760; 94799; 99140; C1758; J0690; J1885; J2210; J2250; J2270; J2370; J2405; J2590; J3010; J3490; J7120